=== PATIENT | male | born 1995 | race Two or more races ===

== ENCOUNTER 2021-09-01 08:15 | Emergency (ER) | payer SELFPAY ==
[~2021-09-01] VITALS: Ht 175.3 cm; Wt 80.7 kg
--- NOTE | 2021-09-01 08:20 | NUR ---
[id number] frm a parking lot. hearing voices and admits to meth use. denies si. The patient is alert and oriented x3. Denies pain. In room air and denies SOB. Respiration regualr and unlabored. Attached to the monitor. Warm blanket provided for comfort. Will continue to monitor the patient.
[2021-09-01] MEDS ORDERED: OLANZAPINE 5 MG TABLET ONE (08:23)
[2021-09-01] MEDS ORDERED: OLANZAPINE 5 MG TABLET PO ONE (08:30)
--- NOTE | 2021-09-01 09:36 | NUR ---
THE PATIENT IS ALERT AND ORIENTED X3. RESTING IN BED COMFORTABLY. DENIES HAVING ANY DISCOMFORT. WILL CONTINUE TO MONITOR THE PATIENT.
--- NOTE | 2021-09-01 10:03 | NUR ---
Patient given written and verbal discharge instructions. Patient verbalizes understanding of instructions. Patient is ambulatory with steady gait. Patient given list of available shelters in surrounding area. The [facility] The patient is alert and oriented x4. Denies pain. Breathing even and unlabored. Denies SOB. Discharge imstructions provided and he verbalized understanding. The patient left ER in stable condition.
[2021-09-01 10:05] VITALS: BP 121/77
== END 2021-09-01 10:05 | disposition home or self-care (01) ==
LOC: ER 08:16
DX: F15.10 Other stimulant abuse, uncomplicated (principal); F20.9 Schizophrenia, unspecified